=== PATIENT | male | born 1990 | race Caucasian/White ===

== ENCOUNTER 2017-06-01 05:32 | Emergency (ER) | payer BC ==
[~2017-06-01] VITALS: Ht 193 cm; Wt 96.2 kg
[~2017-06-01 05:32] MED LIST: HYDR-3816 PO; acutane
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
[2017-06-01] MEDS ORDERED: PSEU60TA20 PO (05:53)
[2017-06-01] MEDS ORDERED: BENZ-36 PO (05:53)
[2017-06-01] MEDS ORDERED: ONDA4TAB8 SL (06:37)
--- NOTE | 2017-06-01 06:37 | ED Abdominal Pain ---
General Chief Complaint: Abdominal/GI Problems Stated Complaint: BLOATED,VOMITING,DIARRHEA Nursing Triage Note: pt reports cough/congestion starting monday. he was seen at direct onsite care et treated with sudogest et benzonatate. he reports vomiting/diarrhea with abd bloating starting monday. he reports bloating persists with abd distention. Sepsis Screen: No Definite Risk Source of Information: Patient Exam Limitations: No Limitations History of Present Illness Time Seen By Provider: 06:16 Initial Comments This 26-year-old young man presents to the emergency room with complaints of cough, congestion, and "gas buildup" starting on Monday. He had diarrhea yesterday and had episodes of vomiting on Monday. He is no longer nauseous and has been able to hydrate relatively well. He has been taking Tessalon Perles and pseudogest. He is afebrile. He complains of early satiety when eating. Overall symptoms have improved with the exception of the feeling of fullness or bloating. Allergies and Home Medications Allergies Coded Allergies: No Known Drug Allergies (Unverified , 12/22/08) Home Medications Benzonatate 100 Mg Capsule, 100-200 MG PO Q8H PRN for COUGH, (Reported) Ondansetron 4 Mg Tab.rapdis, 4 MG SL Q4H PRN for NAUSEA/VOMITING-1ST LINE, #10 Prescribed by: KEENA MORLEY on 06/01/17 0637 Pseudoephedrine HCl 60 Mg Tablet, 60 MG PO Q8H PRN for CONGESTION, (Reported) Review of Systems Constitutional: no symptoms reported EENTM: No Symptoms Reported Respiratory: See HPI Cardiovascular: No Symptoms Reported Gastrointestinal: See HPI Genitourinary: No Symptoms Reported Musculoskeletal: no symptoms reported Skin: no symptoms reported Psychiatric/Neurological: No Symptoms Reported Endocrine: No Symptoms Reported Hematologic/Lymphatic: No Symptoms Reported Past Txujaeh-Orogwe-Trxszl Hx Patient Social History Alcohol Use: Occasionally Uses Recreational Drug Use: No Smoking Status: Never a Smoker Recent Foreign Travel: No Contact w/Someone Who Travel: No Recent Infectious Disease Expo: No Recent Hopitalizations: Yes Physical Abuse: No Sexual Abuse: No Mistreated: No Fear: No Surgeries History of Surgeries: Yes (right wrist, right ankle, right 5th finger, hernia repair) Surgeries: Orthopedic Respiratory History of Respiratory Disorde: No Cardiovascular History of Cardiac Disorders: No Neurological History of Neurological Disord: No Reproductive System Hx Reproductive Disorders: No Gastrointestinal History of Gastrointestinal Di: No Musculoskeletal History of Musculoskeletal Dis: No Endocrine History of Endocrine Disorders: No Cancer History of Cancer: No Psychosocial History of Psychiatric Problem: No Suicide Risk Score: 0 Integumentary History of Skin or Integumenta: No Blood Transfusions History of Blood Disorders: No Physical Exam Vital Signs VS - Last 72 Hours, by Label 06/01/17 06/01/17 05:48 06:47 Temp 98.1 Pulse 92 88 Resp 16 16 B/P (MAP) 142/98 (113) Pulse Ox 98 Capillary Refill : Less Than 3 Seconds General Appearance: WD/WN, no apparent distress HEENT: normal ENT inspection, pharynx normal Neck: normal inspection Respiratory: lungs clear, normal breath sounds, no respiratory distress, no accessory muscle use Cardiovascular: regular rate, rhythm, no edema, no murmur Gastrointestinal: normal bowel sounds, non tender, soft, distended (Minimally) Extremities: normal inspection, no pedal edema Neurologic/Psychiatric: head host/hostess II-XII nml as tested, no motor/sensory deficits, alert, normal mood/affect, oriented x 3 Skin: normal color, warm/dry Progress/Results/Core Measures Results/Orders Vital Signs/I&O Vital Sign - Last 12Hours 06/01/17 06/01/17 05:48 06:47 Temp 98.1 Pulse 92 88 Resp 16 16 B/P (MAP) 142/98 (113) Pulse Ox 98 Blood Pressure Mean: 113 Progress Note : Progress Note I discussed options with patient. He was informed workup could be pursued but would likely not yield anything abnormal. By description of symptoms, it seems the patient is recovering from gastroenteritis and would benefit from a few more days of bowel rest. Patient elects to forego further workup and monitor his symptoms over the next couple of days. Departure Impression Impression: Primary Impression: Nausea vomiting and diarrhea Disposition: 01 HOME, SELF-CARE Condition: Stable Departure-Patient Inst. Decision time for Depature: 06:34 Referrals: NO,LOCAL PHYSICIAN (PCP/Family) Primary Care Physician Patient Instructions: Acute Abdomen (Belly Pain), Adult (DC), Viral Gastroenteritis Add. Discharge Instructions: Drink plenty of clear liquids, especially water. Gradually advance your diet with small quantities of bland food as tolerated. Your symptoms of bloating, gas, and abdominal discomfort resolved likely lingering symptoms of viral gastroenteritis. You should gradually improve over the next few days. If symptoms worsen or you are not improving as expected, return to care. You may take Tylenol (acetaminophen) up to 1000 mg every 6 hours as needed for discomfort. Use the Zofran (ondansetron) as prescribed for nausea and vomiting. All discharge instructions reviewed with patient and/or family. Voiced understanding. Scripts Ondansetron (Zofran Odt) 4 Mg Tab.rapdis 4 MG SL Q4H Y for NAUSEA/VOMITING-1ST LINE, #10 TAB Prov: KEENA GRIMES MD 06/01/17 Work/School Note: Work Release Form Date Seen in the Emergency Department: Jun 01, 2017 Return to Work: Jun 02, 2017 Restrictions: No Restrictions KEENA GRIMES MD Jun 01, 2017 06:37
[2017-06-01 06:47] VITALS: BP 138/94
== END 2017-06-01 06:47 | disposition home or self-care (01) ==
LOC: EDUNIT# 05:32 → ER 05:37
DX: R11.2 Nausea with vomiting, unspecified (principal); R19.7 Diarrhea, unspecified; Z98.890 Other specified postprocedural states
CPT/HCPCS: 99282

== ENCOUNTER 2018-12-24 20:40 | Emergency (ER) | payer BC ==
[~2018-12-24] VITALS: Ht 193 cm; Wt 97.5 kg
[~2018-12-24 20:40] MED LIST changes: +BENZ-36 PO; +ONDA4TAB8 SL; +PSEU60TA20 PO
[2018-12-24] MEDS ORDERED: ASPIRIN 81 MG CHEW (CHILDREN'S ASA) ONE (21:41)
[2018-12-24 21:53] LABS: BASOPHILS % (AUTO) 0 % (0-10); EOSINOPHILS # (AUTO) 0.2 10^3/uL (0.0-0.3); EOSINOPHILS % (AUTO) 2 % (0-10); HEMATOCRIT 45 % (40-54); HEMOGLOBIN 15.7 G/DL (13.3-17.7); LYMPHOCYTES # (AUTO) 2.4 X 10^3 (1.0-4.0); LYMPHOCYTES % (AUTO) 29 % (12-44); MEAN CORPUSCULAR HEMOGLOBIN 29 PG (25-34); MEAN CORPUSCULAR HGB CONC 35 G/DL (32-36); MEAN CORPUSCULAR VOLUME 84 FL (80-99); MEAN PLATELET VOLUME 9.5 FL (7.4-10.4); MONOCYTES # (AUTO) 0.9 X 10^3 (0.0-1.0); MONOCYTES % (AUTO) 11 % (0-12); NEUTROPHILS # (AUTO) 4.6 X 10^3 (1.8-7.8); NEUTROPHILS % (AUTO) 57 % (42-75); PLATELET COUNT 175 10^3/uL (130-400); RED CELL DISTRIBUTION WIDTH 13.1 % (10.0-14.5)
[2018-12-24] MEDS ORDERED: ASPIRIN 81 MG CHEW (CHILDREN'S ASA) PO ONE (22:00)
--- NOTE | 2018-12-24 22:01 | Diagnostic Imaging Report ---
INDICATION: Chest pain COMPARISON: 10/04/2011 FINDINGS: Single frontal view of the chest demonstrates normal heart size and pulmonary vascularity. The lungs are well aerated and clear. No large pleural effusion or pneumothorax is seen. The visualized osseous structures show no acute abnormalities. IMPRESSION: 1. No acute cardiopulmonary process. Dictated by: Dictated on workstation # [id number]
[2018-12-24 22:04] LABS: ALANINE AMINOTRANSFERASE 28 U/L (0-55); ALBUMIN 4.5 GM/DL (3.2-4.5); ALKALINE PHOSPHATASE 98 U/L (40-136); BILIRUBIN,TOTAL 0.4 MG/DL (0.1-1.0); BUN/CREATININE RATIO 10; CALCIUM 9.6 MG/DL (8.5-10.1); CARBON DIOXIDE 24 MMOL/L (21-32); CHLORIDE 102 MMOL/L (98-107); CREATININE SERUM 1.29 MG/DL (0.60-1.30); GFR ESTIMATED > 60; GLUCOSE 97 MG/DL (70-105); MAGNESIUM 2.6 MG/DL (1.8-2.4); POTASSIUM 3.5 MMOL/L (3.6-5.0); SODIUM 141 MMOL/L (135-145); TOTAL PROTEIN 7.6 GM/DL (6.4-8.2)
[2018-12-24 22:12] LABS: INR 0.9 (0.8-1.4); PROTHROMBIN TIME PATIENT 12.8 SEC (12.2-14.7)
--- NOTE | 2018-12-24 22:29 | ED Chest Pain ---
General Chief Complaint: Chest Pain Stated Complaint: CHEST PAIN Source: patient Exam Limitations: no limitations History of Present Illness Date Seen by Provider: Dec 24, 2018 Time Seen by Provider: 22:20 Initial Comments Here with onset of chest pain at work tonight to the left upper chest wall that he states was aching and sharp. Would come and go. He went home and then at about 8 PM he had that lasted for several minutes or longer. Ultimately presented to the ER with that. Currently pain-free. His concern is that his father had quadruple bypass at the age of 40. Patient is chest pain-free currently. Denies nausea, vomiting, weakness, sweating or dizziness. Timing/Duration: 1-3 hours, gone now Severity/Quality: moderate, sharp Location: central Radiation: no radiation Activities at Onset: none Prior CP/Workup: no prior chest pain, no prior cardiac workup ASA po FRONT WORKER: No NTG SL FRONT WORKER: No Associated Symptoms: No abdominal pain, No back pain, No nausea/vomiting, No shortness of breath, No syncope, No weakness Allergies and Home Medications Allergies Coded Allergies: No Known Drug Allergies (Unverified , 12/22/08) Home Medications Benzonatate 100 Mg Capsule, 100-200 MG PO Q8H PRN for COUGH, (Reported) Ondansetron 4 Mg Tab.rapdis, 4 MG SL Q4H PRN for NAUSEA/VOMITING-1ST LINE Prescribed by: KEENA MORLEY on 06/01/17 0637 Pseudoephedrine HCl 60 Mg Tablet, 60 MG PO Q8H PRN for CONGESTION, (Reported) Patient Home Medication List Home Medication List Reviewed: Yes Review of Systems Review of Systems Constitutional: see HPI; No chills, No fever EENTM: No Symptoms Reported Cardiovascular: See HPI, Chest Pain Gastrointestinal: No Symptoms Reported Genitourinary: No Symptoms Reported Musculoskeletal: no symptoms reported Skin: no symptoms reported Psychiatric/Neurological: No Symptoms Reported All Other Systems Reviewed Negative Unless Noted: Yes Past Oqlmrua-Prmzxl-Rdbvjx Hx Past Med/Social Hx: Reviewed Nursing Past Med/Soc Hx Patient Social History Alcohol Use: Denies Use Recreational Drug Use: No Type Used: Smokeless Tobacco Recent Foreign Travel: No Contact w/Someone Who Travel: No Recent Hopitalizations: Yes Past Medical History Surgeries: Yes (right wrist, right ankle, right 5th finger, hernia repair) Orthopedic Respiratory: No Cardiac: No Neurological: No Reproductive Disorders: No Gastrointestinal: No Musculoskeletal: No Endocrine: No Cancer: No Psychosocial: No Integumentary: No Blood Disorders: No Family Medical History CAD Under 55 Years Old, Hypertension Physical Exam Vital Signs Vital Signs - First Documented 12/24/18 21:27 Temp 98.0 Pulse 80 Resp 18 B/P (MAP) 165/103 (123) Pulse Ox 99 O2 Delivery Room Air Capillary Refill : Height, Weight, BMI Height: 6'4.00" Weight: 212lbs. oz. 96.374803sx; BMI Method:Stated General Appearance: No Apparent Distress, WD/WN HEENT: PERRL/EOMI, Normal ENT Inspection Neck: Non Tender, Supple Respiratory: Lungs Clear, Normal Breath Sounds Cardiovascular: Regular Rate, Rhythm, No Murmur Gastrointestinal: Non Tender, Soft Extremity: Normal Range of Motion, Non Tender Neurologic/Psychiatric: Alert, Oriented x3 Skin: Normal Color, Warm/Dry Progress/Results/Core Measures Results/Orders Lab Results Laboratory Tests Test 12/24/18 21:38 12/24/18 23:53 Range/Units White Blood Count 8.0 4.3-11.0 10^3/uL Red Blood Count 5.37 4.35-5.85 10^6/uL Hemoglobin 15.7 13.3-17.7 G/DL Hematocrit 45 40-54 % Mean Corpuscular Volume 84 80-99 FL Mean Corpuscular Hemoglobin 29 25-34 PG Mean Corpuscular Hemoglobin Concent 35 32-36 G/DL Red Cell Distribution Width 13.1 10.0-14.5 % Platelet Count 175 130-400 10^3/uL Mean Platelet Volume 9.5 7.4-10.4 FL Neutrophils (%) (Auto) 57 42-75 % Lymphocytes (%) (Auto) 29 12-44 % Monocytes (%) (Auto) 11 0-12 % Eosinophils (%) (Auto) 2 0-10 % Basophils (%) (Auto) 0 0-10 % Neutrophils # (Auto) 4.6 1.8-7.8 X 10^3 Lymphocytes # (Auto) 2.4 1.0-4.0 X 10^3 Monocytes # (Auto) 0.9 0.0-1.0 X 10^3 Eosinophils # (Auto) 0.2 0.0-0.3 10^3/uL Basophils # (Auto) 0.0 0.0-0.1 10^3/uL Prothrombin Time 12.8 12.2-14.7 SEC INR Comment 0.9 0.8-1.4 Activated Partial Thromboplast Time 29 24-35 SEC D-Dimer 0.22 0.00-0.49 UG/ML Sodium Level 141 135-145 MMOL/L Potassium Level 3.5 L 3.6-5.0 MMOL/L Chloride Level 102 98-107 MMOL/L Carbon Dioxide Level 24 21-32 MMOL/L Anion Gap 15 H 5-14 MMOL/L Blood Urea Nitrogen 13 7-18 MG/DL Creatinine 1.29 0.60-1.30 MG/DL Estimat Glomerular Filtration Rate > 60 BUN/Creatinine Ratio 10 Glucose Level 97 70-105 MG/DL Calcium Level 9.6 8.5-10.1 MG/DL Corrected Calcium 9.2 8.5-10.1 MG/DL Magnesium Level 2.6 H 1.8-2.4 MG/DL Total Bilirubin 0.4 0.1-1.0 MG/DL Aspartate Amino Transf (AST/SGOT) 16 5-34 U/L Alanine Aminotransferase (ALT/SGPT) 28 0-55 U/L Alkaline Phosphatase 98 40-136 U/L Myoglobin 53.6 10.0-92.0 NG/ML Troponin I < 0.028 < 0.028 <0.028 NG/ML Total Protein 7.6 6.4-8.2 GM/DL Albumin 4.5 3.2-4.5 GM/DL My Orders Orders - JEMMA SCOTT MD Cbc With Automated Diff (12/24/18 21:46) Magnesium (12/24/18 21:46) Chest 1 View, Ap/Pa Only (12/24/18 21:46) Ekg Tracing (12/24/18 21:46) Cardiac Profile 1 (12/24/18 21:46) Comprehensive Metabolic Panel (12/24/18 21:46) Myoglobin Serum (12/24/18 21:46) Protime With Inr (12/24/18 21:46) Partial Thromboplastin Time (12/24/18 21:46) O2 (12/24/18 21:46) Monitor-Rhythm Ecg Trace Only (12/24/18 21:46) Lipid Panel (12/25/18 06:00) Ed Iv/Invasive Line Start (12/24/18 21:46) Fibrin Degradation Products (12/24/18 21:46) Aspirin Chewable Tablet (Baby Aspirin Ch (12/24/18 22:00) Aspirin Chewable Tablet (Baby Aspirin Ch (12/24/18 21:41) Ekg Tracing (12/24/18 23:24) Troponin I (12/24/18 23:24) Medications Given in ED Current Medications Medications Dose Ordered Sig/Rosi Route Start Time Stop Time Status Last Admin Dose Admin Aspirin 324 mg ONCE ONCE PO 12/24/18 22:00 12/24/18 22:01 DC 12/24/18 21:50 324 MG Vital Signs/I&O 12/24/18 12/24/18 21:27 21:27 Temp 98.0 Pulse 80 Resp 18 B/P (MAP) 165/103 (123) Pulse Ox 99 O2 Delivery Room Air Progress Progress Note : Progress Note Seen and evaluated. IV, labs, EKG and chest x-ray ordered and completed. Initial set negative. We will do two hour rule out. Patient did receive aspirin 324 milligrams by mouth. Monitor patient. 0030: Repeat troponin and EKG negative. No return of chest pain. Patient will follow-up with cardiology. His dad has a divider operator in [place] and that's likely where he will follow-up. Discharged home with return precautions. Patient verbalize understanding instructions and agreement with plan. Initial ECG Impression Date: Dec 24, 2018 Initial ECG Impression Time: 21:29 Initial ECG Rate: 83 Initial ECG Rhythm: Normal Sinus Comment Sinus rhythm with normal axis. No evidence of ST elevation MT. Flat T waves but otherwise noted abnormal findings. No previous available for comparison. Interpreted by me. EKG : EKG Time: 23:28 Rate: 70 Rhythm: Normal Sinus ECG Comparisson: Unchanged ECG Impression: Normal Comment Sinus rhythm with normal axis. Nodes of ST elevation MT. Overall very similar to previous done earlier [facility]. Interpreted by me. Diagnostic Imaging Diagonstic Imaging: Xray Plain Films/CT/US/NM/MRI: chest Comments [facility] [place], [place] NAME: DANIEL GRIFFIN Bradley [facility] REC#: [id number] PT STATUS: REG ER : 1990 PHYSICIAN: JEMMA SCOTT MD ADMIT DATE: 12/24/18/ER Draft Date of Exam:12/24/18 CHEST 1 VIEW, AP/PA ONLY INDICATION: Chest pain COMPARISON: 10/04/2011 FINDINGS: Single frontal view of the chest demonstrates normal heart size and pulmonary vascularity. The lungs are well aerated and clear. No large pleural effusion or pneumothorax is seen. The visualized osseous structures show no acute abnormalities. IMPRESSION: 1. No acute cardiopulmonary process. Dictated on workstation # [id number] Dict: 12/24/182199 Trans: 12/24/182200 [facility] [id number] Interpreted by: ANJALI PARK MD Electronically signed by: Departure Impression Primary Impression: Chest pain Qualified Codes: R07.9 - Chest pain, unspecified Disposition: 01 HOME, SELF-CARE Condition: Improved Departure-Patient Inst. Decision time for Depature: 00:31 Referrals: ADDIS MENDEZ MD NO,LOCAL PHYSICIAN (PCP) Primary Care Physician Patient Instructions: Chest Pain (DC) Add. Discharge Instructions: All discharge instructions reviewed with patient and/or family. Voiced understa nding. Follow-up with the cardiology listed for of your choice for recheck and further evaluation within the next week or 2. Return for worse pain, fever, vomiting, weakness, breathing problems or other concerns as needed. Work/School Note: Work Release Form Date Seen in the Emergency Department: Dec 24, 2018 Return to Work: Dec 25, 2018 Restrictions: No Restrictions Other Restrictions Listed Below: Patient was in the ER late overnight. Please allow late return to work JEMMA SCOTT MD Dec 24, 2018 22:29
[2018-12-25 00:47] VITALS: BP 141/87
== END 2018-12-25 00:47 | disposition home or self-care (01) ==
LOC: EDUNIT# 20:40 → ER 20:42
DX: R07.89 Other chest pain (principal); Z98.890 Other specified postprocedural states; Z82.49 Family history of ischemic heart disease and other diseases of the circulatory system
CPT/HCPCS: 36415; 71045; 80053; 83735; 83874; 84484; 85025; 85379; 85610; 85730; 93005; 93041

== ENCOUNTER 2020-03-04 05:32 | Outpatient (RCR) | payer BC ==
[~2020-03-04] VITALS: Ht 193 cm; Wt 97.7 kg
[~2020-03-04 05:32] MED LIST changes: +PANT40TA52 PO; -PSEU60TA20 PO; +PSEU60TA21 PO
== END 2020-03-04 10:38 | disposition home or self-care (01) ==
LOC: PREOP 05:32
PROVIDERS: ATTEND Internal Medicine
DX: Z01.818 Encounter for other preprocedural examination (principal)
CPT/HCPCS: 87635

== ENCOUNTER 2020-03-06 08:23 | Day surgery (SDC) | payer BC ==
--- NOTE | 2020-02-28 20:10 | HISTORY AND PHYSICAL ---
DATE OF SERVICE: PANENDOSCOPY HISTORY AND PHYSICAL HISTORY OF PRESENT ILLNESS: The patient is a 29-year-old white male referred by Dr. Waggoner for consideration for panendoscopy for the left upper quadrant abdominal pain and reflux sounding symptoms, melena with diarrhea and reported 8-pound weight loss over the past two months. The patient reports that he has had reflux symptoms with burning in the epigastrium radiating up into the chest that had required antacid therapy several times a week for roughly the past two years. He has never been overweight. He reports smokeless tobacco only chewing about a can and a half per day and he has done so for the past 10 years. He has had some intermittent left upper quadrant abdominal pain that radiates up into the chest, severe enough that he presented to the emergency room with the symptoms on 12/25/2019. There, his D-dimer was normal at 0.22. He had serial troponin levels around that were normal. Potassium was borderline low at 3.5, magnesium was minimally elevated at 2.6 and the remainder of his chemistry panel and CBC were normal. A chest x-ray done at that time revealed no abnormality. He reports about an 8-pound weight loss over the past 2 months based on his home scales. He has had 1 to 2 loose stools for the past several months and over the past week, stools have become dark to black in color. He denies weakness, lightheadedness or dyspnea on exertion. 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 He denies any problems with increased stress and denies any panic type symptoms or sense of impending doom. PAST MEDICAL HISTORY: Other than reflux, it is relatively unremarkable. He was started on pantoprazole about 10 days ago and has not had any burning epigastric discomfort and also denies dysphagia. PAST SURGICAL HISTORY: Significant for right inguinal hernia repair. He has also had ankle and wrist surgery from trauma. 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 Occasional moderate volume alcohol consumption, which does not aggravate his symptoms per his reports and again the above smokeless tobacco history. FAMILY HISTORY: Father had triple bypass at the age of 48, is living in his early 50s and also has hypertension. Mother has hypothyroidism. He is not aware of any family history for GI tract malignancies or other malignancies except for one grandmother, who at the age of 60 of an unknown type of cancer. MEDICATIONS ON ADMISSION: Include pantoprazole 40 mg daily. He has actually been this taking for the last 3 weeks. ALLERGIES: He reports no known drug allergies. REVIEW OF SYSTEMS: CONSTITUTIONAL: Pertinent for an 8-pound weight loss. He has had no night sweats, chills or fever. PULMONARY: He denies cough or dyspnea on exertion. CARDIOVASCULAR: He does report an aching left precordial chest discomfort that is not exertional. It does not wake him from sleep. He has had no orthopnea, PND or pedal edema. GASTROINTESTINAL: As noted in the HPI. PHYSICAL EXAMINATION: GENERAL: Reveals normal weight white male, appears to be in no acute distress. VITAL SIGNS: Weight is 212 pounds, blood pressure 132/80. HEENT: Unremarkable except for an acneiform eruption compatible with underlying rosacea. Oral cavity revealed buccal mucosal changes with a crinkling, but no leukoplakia or ulceration compatible with a smokeless tobacco related stomatitis. Oral cavity is clear. Soft palate and tongue mobility normal. NECK: Revealed no JVD, adenopathy or bruits. CHEST: Clear to auscultation. CARDIOVASCULAR: Revealed a regular rate and rhythm without murmur, S3 or S4. ABDOMEN: Soft, supple without mass, organomegaly or tenderness. Bowel sounds are positive. No distention noted. No bruits noted. EXTREMITIES: Reveal no cyanosis, clubbing or edema. SKIN: Evaluation revealed no suspicious nevi. ASSESSMENT AND PLAN: For further investigation of reflux sounding symptoms with noncardiac sounding chest pain in addition to possible melena with weight loss and change in bowel habit with diarrhea, the patient is set up for diagnostic colonoscopy and EGD to be done under Diprivan based anesthesia. Prep instructions with the Suprep kit were given and questions were answered. I thank you for the referral of this pleasant gentleman. Job ID: [id number] DocumentID: [id number] Dictated Date: 02/26/2020 16:08:23 Defect Cutter Date: 02/26/2020 17:00:17 Dictated By: CECILIA CRYSTAL MD
[~2020-03-06] VITALS: Ht 193 cm; Wt 97.7 kg
[2020-03-06] MEDS ORDERED: LACTATED RINGERS 1,000 ML IV ONE (08:38)
[2020-03-06] MEDS ORDERED: LACTATED RINGERS 1,000 ML IV STA (08:45)
[2020-03-06] MEDS ORDERED: LIDOCAINE JELLY 2% 6 ML SYRINGE MM PRN (08:45)
[2020-03-06] MEDS ORDERED: HURRICAINE EXT TUBE (BENZOCAINE) XX PRN (08:45)
[2020-03-06 08:55] VITALS: BP 132/90
[2020-03-06] MEDS ORDERED: PROPOFOL INJECTION 50 ML IV ONE ×2 (09:41→10:24)
[2020-03-06] MEDS ORDERED: MIDAZOLAM 2 MG/2 ML (VERSED) VIAL ONE (09:42)
--- NOTE | 2020-03-06 09:44 | Pre-Op Note & Conscious Sedat ---
Pre-Operative Progress Note H&P Reviewed The H&P was reviewed, patient examined and no changes noted. Date H&P Reviewed: Mar 06, 2020 Time H&P Reviewed: 09:05 Conscious Sedation Pre-Proced ASA Score 1 For ASA 3 and 4: Consider anesthesia and medical clearance. Also, for patients with a history of failed moderate sedation consider anesthesia. Airway Lungs Heart ASA score ASA 1: a normal healthy patient ASA 2: a patient with a mild systemic disease (mid diabetes, controlled hypertension, obesity ASA 3: a patient with a severe systemic disease that limits activity (angina, COPD, prior Myocardial infarction) ASA 4: a patient with an incapacitating disease that is a constant threat to life (CHF, renal failure) ASA 5: a moribund patient not expected to survive 24 hrs. (ruptured aneurysm) ASA 6: a declared brain- patient whose organs are being harvested. For emergent operations, add the letter E after the classification Mallampati Classification Grade 2 Sedation Plan Analgesia, Amnesia, Plan communicated to team members, Discussed options with patient/fam, Discussed risks with patient/fam The patient is an appropriate candidate to undergo the planned procedure, sedation, and anesthesia. The patient immediately re-assessed prior to indication. CECILIA CRYSTAL MD Mar 06, 2020 09:43
[2020-03-06] MEDS ORDERED: LIDOCAINE JELLY 2% 6 ML SYRINGE ONE (09:45)
[2020-03-06 10:20] VITALS: BP 119/61
[2020-03-06 10:25] VITALS: BP 121/62
[2020-03-06 10:30] VITALS: BP 122/57
[2020-03-06 11:05] VITALS: BP 132/80
[2020-03-06 11:15] VITALS: BP 132/80
--- NOTE | 2020-03-06 19:24 | OPERATIVE REPORT ---
DATE OF SERVICE: PANENDOSCOPY SUMMARY INDICATION FOR THE PROCEDURE: Gastroesophageal reflux symptoms, chest pain, weight loss, melena, left lower quadrant abdominal pain. The patient was placed in the left lateral decubitus position. The upper endoscope was inserted into the oral cavity and under direct visualization, esophagus was intubated. The endoscope was passed down the esophagus, stomach and second portion of the duodenum. Careful inspection was made as the endoscope was withdrawn. The patient tolerated the procedure well. FINDINGS: The posterior pharynx, the arytenoid aperture epiglottis, true and false vocal folds were unremarkable to visual inspection. The proximal, mid and distal esophagus were unremarkable except for evidence for lower esophageal sphincter laxity. There was no evidence for hiatal hernia, Thornton's change or erosive esophagitis. Biopsies were obtained and submitted for histopathology. The cardia, fundus, antrum, pylorus, pyloric channel, duodenal bulb and second portion of duodenum were unremarkable. ASSESSMENT: There was evidence for lower esophageal sphincter laxity during the procedure without evidence for erosive esophagitis. We discussed that his smokeless tobacco habit was likely a major factor in this regard. He reported upwards of a can and a half a day. Since office visit he has cut down to half a can a day. We discussed further tapering schedule completely off. He was concerned that his chest pain may be heart related. It is not aggravated by physical activity. I suspect that it is chest wall muscle in etiology. Esophageal spasm is a little less likely, but possible and he was told again that tapering off of smokeless tobacco may resolve his chest pain. We then proceeded with colonoscopy. DESCRIPTION OF PROCEDURE: Prior to doing colonoscopy, digital rectal evaluation was performed. Anal sphincter tone was normal and the perianal reflexes intact. No prostate abnormalities noted on digital inspection and the distal rectal vault was unremarkable. The colonoscope was then inserted into the rectum under direct visualization advanced to cecum. The cecum was identified by identification of the ileocecal valve and cecal strap. Photographic documentation was obtained. Colyte prep was good. The distal 5 to 10 cm of terminal ileum were inspected as well and unremarkable. ASSESSMENT AND PLAN: Diminutive hyperplastic-appearing rectal polyp was noted. It was ablated with hot forceps. The remainder of the rectum was unremarkable. No evidence for inflammatory change was noted. The sigmoid colon, descending colon, transverse colon, ascending colon, cecum and terminal ileum were unremarkable. No evidence for polyps, diverticular disease or inflammatory change was noted. ASSESSMENT: Normal colonoscopy to the cecum including distal terminal ileum except for one small hyperplastic-appearing polyp removed via hot forceps from the distal rectum. The patient was reassured by today's findings. See above EGD summary. I thank you for the referral of this pleasant gentleman. 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
--- NOTE | 2020-03-10 11:04 | Anesthesia-General Post-Op ---
MAC Significant Intra-Op Events Notes late entry 03/06@ 1045 Patient Condition Mental Status/LOC: Same as Preop Cardiovascular: Satisfactory Nausea/Vomiting: Absent Respiratory: Satisfactory Pain: Controlled Complications: Absent Post Op Complications Complications None Follow Up Care/Instructions Patient Instructions None needed. Anesthesiology Discharge Order Discharge Order Patient is doing well, no complaints, stable vital signs, no apparent adverse anesthesia problems. No complications reported per nursing. TAYLOR MELGAR CRNA Mar 10, 2020 11:04
== END 2020-03-06 11:15 | disposition home or self-care (01) ==
LOC: ENDO 08:23
PROVIDERS: ATTEND Internal Medicine
DX: K21.00 Gastro-esophageal reflux disease with esophagitis, without bleeding (principal); K29.50 Unspecified chronic gastritis without bleeding; K92.1 Melena; K63.5 Polyp of colon; R63.4 Abnormal weight loss; R07.9 Chest pain, unspecified; Z79.899 Other long term (current) drug therapy; Z80.9 Family history of malignant neoplasm, unspecified